=== PATIENT | female | born 1970 | race Caucasian/White ===

== ENCOUNTER 2019-01-16 21:57 | Emergency (ER) | payer SELFPAY ==
[~2019-01-16] VITALS: Ht 152.4 cm; Wt 61.2 kg
[2019-01-16 22:10] VITALS: BP_SYST 140
== END 2019-01-16 22:30 | disposition left against medical advice (07) ==
LOC: SED 21:57
DX: F41.0 Panic disorder [episodic paroxysmal anxiety] (principal); J02.9 Acute pharyngitis, unspecified; R50.9 Fever, unspecified; Z53.21 Procedure and treatment not carried out due to patient leaving prior to being seen by health care provider

== ENCOUNTER 2019-04-07 19:10 | Emergency (ER) | payer SELFPAY ==
[~2019-04-07] VITALS: Ht 152.4 cm; Wt 59.0 kg
[2019-04-07 19:15] VITALS: BP_SYST 142
--- NOTE | 2019-04-07 20:49 | NUR ---
Patient to ER bed 04 to gown for evaluation. Side rails up. Report given to Johnathan KIMBALL.
--- NOTE | 2019-04-07 20:50 | NUR ---
Pt is C/O left sided facial tingling, nausea and increased anxiety. States she felt like she was having a panic attack at work, EMS was called and vitals were stable on scene. EMS advised to be evaluated in ED. Reports increased anxiety at home and work. Denies any other symptoms, will continue to monitor
--- NOTE | 2019-04-07 20:56 | NUR ---
ER Dr. Tapia at bedside examining patient.
[2019-04-07 21:13] LABS: BASOPHILS # (AUTO) 0.1 K/uL (0.0-0.2); BASOPHILS % (AUTO) 1.1 % (0.0-2.0); EOSINOPHILS # (AUTO) 0.1 K/uL (0.0-0.4); EOSINOPHILS % (AUTO) 1.4 % (0.0-4.0); HEMATOCRIT 41.9 % (36-48); HEMOGLOBIN 13.8 g/dL (12.0-16.0); LYMPHOCYTES # (AUTO) 2.2 K/uL (1.0-5.5); LYMPHOCYTES % (AUTO) 20.8 % (20.5-51.5); MEAN CORPUSCULAR HEMOGLOBIN 31 pg (27-31); MEAN CORPUSCULAR HGB CONC 33 % (32-36); MEAN CORPUSCULAR VOLUME 94 fL (79.0-98.0); MONOCYTES # (AUTO) 0.8 K/uL (0.0-1.0); MONOCYTES % (AUTO) 7.6 % (1.7-9.3); NEUTROPHILS # (AUTO) 7.4 K/uL (1.8-7.7); NEUTROPHILS % (AUTO) 69.1 % (40.0-70.0); PLATELET COUNT (AUTO) 241 K/uL (130-430); RED BLOOD CELL COUNT(AUTO) 4.47 MIL/uL (4.2-6.2); RED CELL DISTRIBUTION WIDTH 14.1 % (9.0-15.0); WHITE BLOOD COUNT (AUTO) 10.7 K/uL (4.8-10.8)
[2019-04-07 21:27] LABS: CREATININE 0.64 mg/dL (0.55-1.30)
[2019-04-07 21:31] LABS: ALBUMIN 3.7 g/dL (3.4-4.8); TOTAL BILIRUBIN 0.3 mg/dL (0.0-1.0)
[2019-04-07 22:10] VITALS: BP_SYST 142
--- NOTE | 2019-04-07 22:10 | NUR ---
Patient given written and verbal discharge instructions and verbalizes understanding. ER MD discussed with patient the results and treatment provided. Patient in stable condition. ID arm band removed. Rx of Ativan given. Patient educated on pain management and to follow up with PMD. Pain Scale 0/10. Opportunity for questions provided and answered. Medication side effect fact sheet provided.
== END 2019-04-07 22:10 | disposition home or self-care (01) ==
LOC: SED 19:10
DX: F41.0 Panic disorder [episodic paroxysmal anxiety] (principal); R20.2 Paresthesia of skin; Z98.51 Tubal ligation status
CPT/HCPCS: 36415; 80053; 85025; 99284